=== PATIENT | male | born 1965 | race Two or more races ===

== ENCOUNTER → 2024-10-16 | Outpatient (CLI) | payer MEDICAID, SELFPAY | END | disposition home or self-care (01) | PROVIDERS: PCP Family Medicine; Referring Provider Family Medicine; Visit Provider Family Medicine | DX: G40.909 Epilepsy, unspecified, not intractable, without status epilepticus (principal) | CPT/HCPCS: 95816 ==

== ENCOUNTER 2025-06-06 10:42 | Emergency (ER) | payer MEDICAID, SELFPAY ==
[2025-06-06 11:04] VITALS: BP 176/77; PULSE 74; RESP 18; TEMP 36.8; O2SAT 99; BMI 39.7
--- NOTE | 2025-06-06 11:27 | EDNOTE_ITS ---
ED Wound/Laceration-RME/HPI General Chief Complaint: Wound/Laceration Stated Complaint: Laceration to top of right fingers Time Seen by Provider: 06/06/25 11:17 Arrival date/time: 06/06/25 10:42 Limitations: no limitations RME / HPI RME / HPI narrative: 60-year-old male here for laceration he sustained yesterday evening. States daughter made him come in because he is due for his tetanus shot and to see if he needs antibiotics or stitches. Daughter states she knows it is too late for stitches at this point but once it looked at. No history of diabetes or IV drug use or otherwise immunocompromise state. Related Data Previous Rx's ?Medication ?Instructions ?Recorded lisinopril 10 mg tablet 10 mg PO QDAY 14 days #0 tab s 12/18/16 cephalexin 500 mg capsule 500 mg PO Q12H #14 caps 12/24 Review of Systems Review of Systems Systems Reviewed: All systems reviewed, normal except as documented Constitutional Constitutional: Denies fever(s) Musculoskeletal Musculoskeletal: Reports as per HPI ED Exam General Limitations: Present no limitations General appearance: Present alert and in no apparent distress Eye Eye exam: Present normal appearance, PERRL and EOMI Respiratory Respiratory exam: Present normal lung sounds bilaterally Cardiovascular Cardiovascular exam: Present regular rate, normal rhythm and normal heart sounds Abdominal Exam Abdominal exam: Present soft and normal bowel sounds Extremities Exam Extremities exam: Present full ROM and other (3rd and 4th digit with old lacerations no tendon or muscle exposure) Back Exam Back exam: Present normal inspection and full ROM Psychiatric Psychiatric exam: Present normal affect and normal mood Skin Skin exam: Present warm, dry, intact and normal color Course Quality Measures none Orders Category Date Time Status Irrigate Wound NOW Care 06/06/25 11:27 Completed Splint / Immobilizer STAT Care 06/06/25 11:27 Completed TET,DIP/PERT AC (Adult)-Tdap [Boostrix Adult (Tdap) Med 06/06/25 11:27 Discontinued Vacc] 0.5 ml IMI .ONCE ONE cephALEXin [Keflex] Med 06/06/25 11:27 Discontinued 500 mg PO X1 ONE Vital Signs Vital signs: Vital Signs Temperature 98.3 F 06/06/25 11:04 Pulse Rate 74 06/06/25 11:04 Respiratory Rate 18 06/06/25 11:04 Blood Pressure 176/77 H 06/06/25 11:04 Pulse Oximetry (%) 99 06/06/25 11:04 Oxygen Delivery Method Room Air 06/06/25 11:04 PROCEDURES: Splint Fabrication: Pre-Fabricated Type: Thumb Spica Reason for Splint: Pain Management Site condition: Laceration(s) Circulation Distal to Splint: Yes Movement Distal to Splint: Yes Senation Distal to Splint: Yes Tolerance: Tolerates Well Wound / Laceration MDM Narrative MDM Narrative:: 60-year-old male with old lacerations, Tdap given antibiotics sent and patient was splinted due to area of lacerations along joint line. Advised follow-up with PCP return to ER symptoms worsen Patient data External records reviewed:: [facility] previous records Clinical information provided by:: patient and family Social determinants that could affect healthcare access:: other (specify) (No PCP appointment on weekend) Patient has the following chronic illnesses:: None How is presenting disease/condition affected by chronic disease/condition?: no chronic disease Evaluation data The following diagnostics were reviewed and interpreted by me:: other (specify) (None) Lab and/or radiology exams considered but not ordered:: X-ray was considered however unlikely to change the course of treatment Interpretation Summary: None Medications / Prescriptions Medications or Prescriptions considered but not ordered:: Narcotics for home were considered however patient does not complain about pain Medication administrations:: Medication Administration History Discontinued Medications Cephalexin HCl (Cephalexin 250 Mg Capsule) 500 mg PO X1 ONE Stop: 06/06/25 11:28 Last Admin: 06/06/25 11:46 Dose: 500 mg Documented By: LT Diphtheria/Tetanus/Acell Pertussis (Diphth,Pertuss(Acell),Tet Vac 0.5 Ml Syr- Adult) 0.5 ml IMi .ONCE ONE Stop: 06/06/25 11:28 Last Admin: 06/06/25 11:47 Dose: 0.5 ml Documented By: LT Wound was too old to suture however applied Steri-Strips Consultations Consultation(s) initiated? (list below): No Diagnosis Wound Differential Diagnosis: laceration, abscess and abrasion Most likely diagnosis given after review of the tests above:: Old laceration no sutures Immunizations not up-to-date Admission Indicated Admission indicated?: not indicated Admission Request Was there a request for admission?: No Disposition Plan Disposition Plan: Discharge Discharge Attestation Discharge Attestation: The patient and all family members were given an opportunity to ask questions and understood the discharge instructions. Discharge instructions specifically effects, indications for sooner follow up or return to the emergency department, and the expected course of current diagnosis. Patient condition: Stable Discharge Plan Plan Patient Disposition: HOME (Self Care) Discharge Disposition comment: f/u 2-3days with pcp Prescriptions/Referrals Prescriptions/Med Rec: New cephalexin 500 mg capsule 500 mg PO Q12H Qty: 14 0RF No Action lisinopril 10 MG tablet 10 mg PO QDAY 14 Days Qty: 0 0RF Problem List Clinical Impression: Laceration, Underimmunized Patient/Caregiver Discharge Instructions Print Language: Indonesian Stand Alone Forms: Esther Award Info., Patient Portal Info Letter PA/SENIOR JAVA ENGINEER Supervising Physician PA/SENIOR JAVA ENGINEER Supervising Physician: Dr. friedman
[2025-06-06] MEDS: DIPHTH,PERTUSS(ACELL),TET VAC 0.5 ML SYR- ADULT IMi (11:47)
== END 2025-06-06 12:21 | disposition home or self-care (01) ==
LOC: SERX 12:58
PROVIDERS: Emergency Provider Emergency Medicine; PCP Family Medicine
DX: S61.212A Laceration without foreign body of right middle finger without damage to nail, initial encounter (principal); S61.214A Laceration without foreign body of right ring finger without damage to nail, initial encounter; X58.XXXA Exposure to other specified factors, initial encounter; Z23 Encounter for immunization
CPT/HCPCS: 90471; 90715; 99282; A9270